=== PATIENT | female | born 1955 | race Caucasian/White ===

== ENCOUNTER 2019-11-05 17:25 | Emergency (ER) | payer BC, SELFPAY ==
--- NOTE | ~2019-11-05 | CT_ITS ---
EXAMINATION: CT brain wo con, CT cervical spine wo con EXAM DATE: 11/05/2019 18:09 INDICATION: Head injury. TECHNIQUE: Spiral CT of the head was performed without contrast. Axial, coronal and sagittal images were reviewed. Spiral CT of the cervical spine was performed without contrast. Axial images were rev iewed. Coronal and sagittal reformatted images were also reviewed. The dose-length product (DLP) fo r this examination was 681.00 (accession [id number]), 172.29 (accession [id number]) mGy-cm. The exposure was tailored according to patient size, and iterative reconstruction (ASIR) was used as additional dose reduction technique. There is no prior study for comparison. FINDINGS: HEAD CT: There is large left-sided acute subdural hematoma, contributing to about 8 mm of rightward m idline shift anteriorly. There is a small acute right-sided subdural hematoma along the falx and ante rior frontal region. There are multiple regions of subarachnoid hemorrhage along the frontal lobes in feriorly and the right temporal lobe. Suspect also left frontal intraparenchymal hematoma. There is acute right temporal bone fracture extending along the anterior aspect of the mastoid air ce lls. This fracture extends superiorly posteriorly along the course of the lambdoid suture. There are small foci of pneumocephalus likely extra-axial location above the right mastoid air cells, with smal l subdural or epidural acute hematoma in this location as well. There is opacity within the right mid dle ear which could be from fracture line which is not well-visualized. No obstructive hydrocephalus. Large right posterior scalp hematoma. CERVICAL CT: Right middle ear was imaged on this technique, with thinner collimation than on head CT, but still difficult to visualize the fracture line likely extending into the right middle ear. There is moderate reversal of the normal cervical lordosis which may be positional or spasm. There is mod erate lower cervical disc disease, moderate upper cervical facet arthropathy. There is no evidence of acute cervical fracture. The odontoid process is intact. Pre-dens space is normal. Prevertebral s oft tissue is normal. There are no soft tissue abnormalities identified. There is no disc space wid ening or traumatic vertebral body subluxation suspected. Vertebral body and disc heights are well-ma intained. A detailed level by level evaluation of spondylosis can be added as addendum if requested . IMPRESSION: 1. Large acute left subdural hematoma, some contralateral midline shift. 2. Small acute right subdural hematoma anteriorly. 3. Probable left frontal lobe intraparenchymal hematoma inferiorly. 4. Scattered regions of subarachnoid hemorrhage bilaterally. 5. Right temporal fracture extending cephalad to the parietal bone. Pneumocephalus and middle ear op acification. 6. Right posterior scalp hematoma. 7. Reversal of cervical lordosis. No acute cervical fracture. I discussed skull fracture, subdural hematomas, subarachnoid hemorrhage with Mikel Escoto MD at 11/05/2019 18:13 CDT. Reviewed, dictated and finalized at location A. IMPRESSION: 1. Large acute left subdural hematoma, some contralateral midline shift. 2. Small acute right subdural hematoma anteriorly. 3. Probable left frontal lobe intraparenchymal hematoma inferiorly. 4. Scattered regions of subarachnoid hemorrhage bilaterally. 5. Right temporal fracture extending cephalad to the parietal bone. Pneumoceph alus and middle ear opacification. 6. Right posterior scalp hematoma. 7. Reversal of cervical lordosis. No acute cervical fracture. I discussed skull fracture, subdural hematomas, subarachnoid hemorrhage with An enedelia Escoto MD at
[2019-11-05 17:30] VITALS: BP 168/98; PULSE 73; RESP 18; TEMP 36.6; O2SAT 100
--- NOTE | 2019-11-05 17:52 | ED.FALL ---
HPI - Fall General Chief Complaint: Fall Stated Complaint: Fall, Hit Head Time Seen by Provider: 11/05/19 17:40 History of Present Illness HPI Narrative: Patient is a 63-year-old female who presents ER status post fall. At 4 PM she was standing on a folding hard chair when she fell off and struck her head. She did not lose consciousness. Sudden onset pain and then developed swelling over the occipital protuberance. She also now has muffled hearing in her left ear but no drainage from her ear. No fevers or chills or sweats. No change in vision. No upper or lower extremity numbness or tingling. Denies neck pain. No blood thinners. Related Data Allergies Allergy/AdvReac Type Severity Reaction Status Date / Time No Known Allergies Allergy Verified 11/05/19 17:55 Review of Systems Review of Systems: All systems reviewed & are unremarkable except as noted in HPI and below Constitutional: Constitutional: Denies chills, Denies fever(s) and Denies weakness Eyes: Eyes: Denies change in vision and Denies photophobia ENT: Denies nasal congestion and Denies sore throat Comments: Decreased hearing right ear Gastrointestinal: Gastrointestinal: Reports nausea and Denies vomiting Neurologic: Reports headache(s), Denies focal weakness and Denies numbness PMFSH Past Medical History Medical History (Updated 11/05/19 @ 18:47 by Mikel Escoto MD) Hypertension Surgical History Surgical History (Updated 11/05/19 @ 17:56 by Mikel Escoto MD) No pertinent past surgical history Social History Social History (Updated 11/05/19 @ 17:56 by Mikel Escoto MD) Smoking status: Never smoker Exam Narrative: Exam Narrative: GENERAL: Well-appearing, well-nourished, and in no acute distress. HEAD: Normocephalic, large hematoma over the posterior aspect of the head.. EYES: PERRL and EOMI. ENT: Mucous membranes moist. No hemotympanum on the right side, no obvious perforation but complete visualization is obscured by some cerumen. Normal left TM. No dorman sign or raccoon eyes. NECK: Supple. NO midline tenderness of the c-spine CHEST: Clear to auscultation. No respiratory distress. HEART: Regular rate and rhythm. Normal peripheral pulses. EXTREMITIES: Normal range of motion. No edema. NEURO: Alert and oriented x3. Decreased hearing on the right. Otherwise neuro intact. PSYCH: Normal mood and affect. Course Course Emergency Course: Patient accepted to [facility] by Dr. Agudelo. Patient and informed of results and treatment plan. Patient receiving Keppra IV as well as some fentanyl for pain. Patient is now become diaphoretic due to pain and discomfort. Patient is now becoming bradycardic into the 40's. We will give her 12.5 g of mannitol as the large bag of mannitol in the Pyxis was crystallized. Vital Signs Vital signs: Vital Signs Temperature 97.9 F 11/05/19 17:30 Pulse Rate 73 11/05/19 17:30 Respiratory Rate 18 11/05/19 17:30 Blood Pressure 168/98 H 11/05/19 17:30 Pulse Oximetry 100 11/05/19 17:30 Temperature 97.9 F 11/05/19 17:30 Pulse Rate 71 11/05/19 18:23 Respiratory Rate 16 11/05/19 18:23 Blood Pressure 168/96 H 11/05/19 18:23 Pulse Oximetry 100 11/05/19 18:23 MDM - Fall Lab Data Labs: Lab Results 11/05/19 Range/Units 17:55 POC Capillary Glucose 161 H (65-105) mg/dl Imaging Data Radiologist's impression: ITS Impressions Cervical Spine CT 11/05/19 18:11 IMPRESSION: 1. Large acute left subdural hematoma, some contralateral midline shift. 2. Small acute right subdural hematoma anteriorly. 3. Probable left frontal lobe intraparenchymal hematoma inferiorly. 4. Scattered regions of subarachnoid hemorrhage bilaterally. 5. Right temporal fracture extending cephalad to the parietal bone. Pneumocephalus and middle ear opacification. 6. Right posterior scalp hematoma. 7. Reversal of cervical lordosis. No acute cervical fract
[2019-11-05] MEDS: ONDANSETRON INJ 4 MG/2 ML VIAL IV PUSH (17:55)
[2019-11-05 17:57] LABS: Glucose Point of Care 161 (65-105)
[2019-11-05 18:23] VITALS: BP 168/96; PULSE 71; RESP 16; O2SAT 100
[2019-11-05] MEDS: levETIRAcetam 1000MG/NACL100ML 1,000 MG/100 ML BAG 125 MG (18:25)
[2019-11-05] MEDS: MANNITOL 25% 50 ML BTL IVPB (18:40)
== END 2019-11-05 18:59 | disposition short-term general hospital (02) ==
PROVIDERS: Emergency Provider Emergency Medicine
DX: S06.6X0A Traumatic subarachnoid hemorrhage without loss of consciousness, initial encounter (principal); S02.19XA Other fracture of base of skull, initial encounter for closed fracture; S06.5X0A Traumatic subdural hemorrhage without loss of consciousness, initial encounter; H74.8X1 Other specified disorders of right middle ear and mastoid; I10 Essential (primary) hypertension; W07.XXXA Fall from chair, initial encounter
CPT/HCPCS: 70450; 72125; 82948; 96365; 96375; 99291; J1953; J2150; J2405; J3010; L0140